=== PATIENT | male | born 1990 | race Caucasian/White ===

== ENCOUNTER 2020-04-14 11:43 | Emergency (ER) | payer OTHER ==
[~2020-04-14] VITALS: Ht 180.3 cm; Wt 97.8 kg
[2020-04-14 11:51] VITALS: BP 115/65
--- NOTE | 2020-04-14 11:53 | ED General ---
General Stated Complaint: LT ANKLE INJ Source of Information: Patient History of Present Illness Date Seen by Provider: Apr 14, 2020 Time Seen by Provider: 11:53 Initial Comments Patient is a 29-year-old male who comes to the emergency department today complaining of injury to the left ankle. Injury happened 2 nights ago. He stepped down from his porch and he states his ankle rolled. He has been able to weight-bear on it but became concerned today when there was worsening pain, swelling, ecchymosis. Allergies and Home Medications Allergies Coded Allergies: No Known Drug Allergies (Unverified , 04/14/20) Home Medications Ibuprofen 800 Mg Tablet, 800 MG PO Q8H PRN for PAIN Prescribed by: SADIE NGO on 04/14/20 1222 Patient Home Medication List Home Medication List Reviewed: Yes Review of Systems Review of Systems Constitutional: no symptoms reported EENTM: no symptoms reported Respiratory: no symptoms reported Cardiovascular: no symptoms reported Gastrointestinal: no symptoms reported Musculoskeletal: see HPI Skin: no symptoms reported All Other Systems Reviewed Negative Unless Noted: Yes Past Rgocegi-Denmhp-Wzwddu Hx Patient Social History Recent Foreign Travel: No Contact w/Someone Who Travel: No Physical Exam Vital Signs Vital Signs - First Documented 04/14/20 11:51 Temp 36.8 Pulse 81 Resp 16 B/P (MAP) 115/65 (82) Pulse Ox 99 O2 Delivery Room Air Capillary Refill : Height, Weight, BMI Height: '" Weight: lbs. oz. kg; BMI Method: General Appearance: No Apparent Distress, WD/WN Respiratory: Lungs Clear, Normal Breath Sounds Cardiovascular: Regular Rate, Rhythm Extremity: Normal Capillary Refill, Other (swelling and tenderness is present about the lateral malleolus mild swelling about the medial malleolus. 2+ dorsalis pedis pulses. Distal capillary refill is less than 2 seconds. No laxity with ligamentous testing.) Neurologic/Psychiatric: Alert, Oriented x3 Skin: Normal Color, Warm/Dry Progress/Results/Core Measures Suspected Sepsis SIRS Temperature: Pulse: Respiratory Rate: Blood Pressure / Mean: Results/Orders My Orders Orders - SADIE NGO DO Ankle 3 View Left (04/14/20 11:55) Air Strup Ankle Brace (04/14/20 12:20) Vital Signs/I&O 04/14/20 11:51 Temp 36.8 Pulse 81 Resp 16 B/P (MAP) 115/65 (82) Pulse Ox 99 O2 Delivery Room Air Capillary Refill : Progress Note : Time: 12:25 Progress Note ED summary: Patient is seen in the ER for minor injury to the ankle. Plain film imaging is completed and reveals possible tiny avulsion fragment off distal fibula. No acute fractures present. In the ER, patient does not complain of significant pain. He is placed in an Venu wrap and Aircast splint and discharged home. Recommended follow-up with primary care doctor. Use ibuprofen as needed fo r pain. Departure Impression Primary Impression: Ankle sprain Disposition: HOME, SELF-CARE Condition: Improved Departure-Patient Inst. Referrals: [facility] (PCP) Primary Care Physician MARY FERNÁNDEZ APRN (Family) Primary Care Physician Scripts Ibuprofen (Ibuprofen) 800 Mg Tablet 800 MG PO Q8H PRN for PAIN, #21 TAB 0 Refills Prov: SADIE NGO DO 04/14/20 SADIE NGO DO Apr 14, 2020 11:53
--- NOTE | 2020-04-14 12:15 | Diagnostic Imaging Report ---
INDICATION: Ankle swelling and pain. FINDINGS: There is soft tissue swelling overlying the lateral aspect of the ankle. There is a small ossific density along the distal aspect of the fibula that may reflect a small avulsion fracture. Distal tibia unremarkable. There is no widening of the ankle mortise. Talar dome normal in morphology. The visualized portion of the foot unremarkable. IMPRESSION: Small ossific density along the distal aspect of the fibula may reflect a small avulsion fracture. There is overlying lateral soft tissue swelling. Ankle alignment appears normal. There is no widening of the ankle mortise. Dictated by: Dictated on workstation # [id number]
[2020-04-14] MEDS ORDERED: IBUP-1780 PO (12:22)
== END 2020-04-14 12:35 | disposition home or self-care (01) ==
LOC: EDUNIT# 11:43 → ER FS 11:46
DX: S93.402A Sprain of unspecified ligament of left ankle, initial encounter (principal); X50.1XXA Overexertion from prolonged static or awkward postures, initial encounter
CPT/HCPCS: 73610; 99283; L4350

== ENCOUNTER 2020-07-24 05:35 | Outpatient (RCR) | payer OTHER ==
[~2020-07-24] VITALS: Ht 180 cm; Wt 95.4 kg
[~2020-07-24 05:35] MED LIST: IBUP-1780 PO
[2020-07-24] MEDS ORDERED: FEXO1TAB43 PO (14:05)
[2020-07-24] MEDS ORDERED: OMEP40CA27 PO (14:05)
[2020-07-31] MEDS ORDERED: ACHD5005 PO (09:59)
== END 2020-10-22 | disposition home or self-care (01) ==
LOC: PREOP 05:35
PROVIDERS: ATTEND Otolaryngology Otolaryngology/Facial Plastic Surgery
DX: Z01.818 Encounter for other preprocedural examination (principal)

== ENCOUNTER → 2020-07-29 | Outpatient (CLI) | payer OTHER ==
[~2020-07-29] MED LIST changes: +ACHD5005 PO; +FEXO1TAB43 PO; +OMEP40CA27 PO
== END ==
LOC: LAB FS 10:00
PROVIDERS: ATTEND Otolaryngology Otolaryngology/Facial Plastic Surgery
DX: Z01.812 Encounter for preprocedural laboratory examination (principal); R22.1 Localized swelling, mass and lump, neck; Z20.828 Contact with and (suspected) exposure to other viral communicable diseases
CPT/HCPCS: 87635

== ENCOUNTER 2020-07-31 06:05 | Day surgery (SDC) | payer OTHER ==
[2020-07-31] VITALS (8 sets, daily range): BP systolic 94–129; BP diastolic 58–99
[~2020-07-31] VITALS: Ht 180 cm; Wt 95.4 kg
[~2020-07-31 06:05] MED LIST changes: -ACHD5005 PO
[2020-07-31] MEDS: LACTATED RINGERS 1,000 ML IV PRN ×2 (06:45→08:55)
[2020-07-31] MEDS ORDERED: MUPIROCIN 2% OINT 22 GM (BACTROBAN) TUBE ONE (07:57)
[2020-07-31] MEDS ORDERED: LIDOCAINE/EPI 1%-1:100,000 (XYLOCAINE) 50 ML ONE (07:57)
[2020-07-31] MEDS ORDERED: fentaNYL INJECTION 100 MCG/2 ML AMP ONE ×2 (08:13→08:58)
[2020-07-31] MEDS ORDERED: MIDAZOLAM 2 MG/2 ML (VERSED) VIAL ONE (08:13)
--- NOTE | 2020-07-31 08:18 | Progress Note-Pre Operative ---
Pre-Operative Progress Note H&P Reviewed The H&P was reviewed, patient examined and no changes noted. Date Seen by Provider: Jul 31, 2020 Time Seen by Provider: 08:00 Date H&P Reviewed: Jul 31, 2020 Time H&P Reviewed: 08:00 Pre-Operative Diagnosis: Right Neck Mass DEUCE DURAN MD Jul 31, 2020 08:18
[2020-07-31] MEDS ORDERED: SEVOFLURANE (ULTANE) 15 ML INHAL SOLN ONE ×4 (08:56→09:29)
[2020-07-31] MEDS ORDERED: ONDANSETRON 4 MG/2 ML (SDV) Z0FRAN ONE (08:56)
[2020-07-31] MEDS ORDERED: LIDOCAINE PF 2% 5 ML (XYLOCAINE) VIAL ONE (08:56)
[2020-07-31] MEDS ORDERED: proPOfol 200 MG/20 ML (DIPRIVAN) VIAL IV ONE (08:56)
--- NOTE | 2020-07-31 09:12 | Progress Note-Post Operative ---
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 Specimen(s) collected/removed right neck mass to dc thology for frozen section DEUCE DURAN MD Jul 31, 2020 09:12
[2020-07-31] MEDS ORDERED: ACETAMINOPHEN 325 MG TABLET PO PRN (09:15)
[2020-07-31] MEDS ORDERED: HYDROcodone/APAP 5 MG/325 MG (LORTAB) TAB PO PRN (09:15)
--- NOTE | 2020-07-31 09:39 | Anesthesia-General Post-Op ---
General Patient Condition Mental Status/LOC: Same as Preop Cardiovascular: Satisfactory Nausea/Vomiting: Absent Respiratory: Satisfactory Pain: Controlled Complications: Absent Post Op Complications Complications None Follow Up Care/Instructions Patient Instructions None needed. Anesthesia/Patient Condition Patient Condition Patient is doing well, no complaints, stable vital signs, no apparent adverse anesthesia problems. No complications reported per nursing. ANTIONETTE PINO CRNA Jul 31, 2020 09:39
[2020-07-31] MEDS ORDERED: ONDANSETRON 4 MG/2 ML (SDV) Z0FRAN IVP PRN (09:45)
[2020-07-31] MEDS ORDERED: fentaNYL INJECTION 100 MCG/2 ML AMP IVP ONE (09:45)
[2020-07-31] MEDS ORDERED: morphine INJ 10 MG/ML 1ML (SYR OR VIAL) IVP ONE (09:45)
[2020-07-31] MEDS ORDERED: ACHD5005 PO (09:59)
== END 2020-07-31 10:55 | disposition home or self-care (01) ==
LOC: SDC 06:05
PROVIDERS: ATTEND Otolaryngology Otolaryngology/Facial Plastic Surgery
DX: L90.5 Scar conditions and fibrosis of skin (principal); K21.9 Gastro-esophageal reflux disease without esophagitis; Z79.899 Other long term (current) drug therapy
CPT/HCPCS: 87081

== ENCOUNTER → 2020-12-19 | Outpatient (CLI) | payer OTHER ==
[~2020-12-19] MED LIST changes: +ACHD5005 PO
--- NOTE | 2020-12-19 12:00 | Diagnostic Imaging Report ---
INDICATION: Mid back pain. TIME OF EXAM: 9:08 AM Two views of the thoracic spine show normal kyphotic curvature. Very slight right convexity scoliotic curvature is noted. The vertebral body heights are maintained. Disc space are maintained. No fracture is seen. Pedicles are unremarkable. Paraspinous line is intact. IMPRESSION: No acute bony abnormality is detected. Dictated by: Dictated on workstation # [id number]
== END ==
LOC: RAD FS 08:58
PROVIDERS: ATTEND Nurse Practitioner Family
DX: M54.6 Pain in thoracic spine (principal)
CPT/HCPCS: 72070

== ENCOUNTER 2022-03-20 23:24 | Emergency (ER) | payer OTHER ==
[~2022-03-20 23:24] MED LIST changes: -OMEP40CA27 PO; +OMEP40CA6 PO
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
[2022-03-21 00:35] VITALS: BP 142/87
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
--- NOTE | 2022-03-21 07:36 | Diagnostic Imaging Report ---
EXAMINATION: Right elbow 3 or more views HISTORY: Elbow injury COMPARISON: None available. FINDINGS: Alignment is normal. No fracture is seen. Joint spaces are normal. IMPRESSION: 1. No fracture. Dictated by: Dictated on workstation # [id number]
== END 2022-03-21 00:47 | disposition home or self-care (01) ==
LOC: EDUNIT# 23:24 → ER FS 23:27
DX: S09.90XA Unspecified injury of head, initial encounter (principal); S00.83XA Contusion of other part of head, initial encounter; S50.01XA Contusion of right elbow, initial encounter; S80.01XA Contusion of right knee, initial encounter; S00.431A Contusion of right ear, initial encounter; F10.129 Alcohol abuse with intoxication, unspecified; Z28.310 Unvaccinated for COVID-19; V00.141A Fall from scooter (nonmotorized), initial encounter; Y92.410 Unspecified street and highway as the place of occurrence of the external cause
CPT/HCPCS: 70450; 70486; 72125; 73080; 73562